=== PATIENT | male | born 1970 | race Caucasian/White ===

== ENCOUNTER 2022-09-20 09:27 | Emergency (ER) | payer SELFPAY | END 2022-09-20 14:09 | disposition left against medical advice (07) | LOC: ER 09:28 | DX: Z00.8 Encounter for other general examination (principal); Z53.21 Procedure and treatment not carried out due to patient leaving prior to being seen by health care provider ==

== ENCOUNTER 2022-09-20 15:16 | Emergency (ER) | payer SELFPAY ==
[~2022-09-20] VITALS: Ht 175.3 cm; Wt 102.7 kg
[2022-09-20 15:52] VITALS: BP 157/98
[2022-09-20 16:31] LABS: BASOPHILS # (AUTO) 0.1 X10'3 (0-0.2); BASOPHILS % (AUTO) 0.6 % (0-1); EOSINOPHILS % (AUTO) 0.4 % (0-6); HEMATOCRIT 50.5 % (42.0-52.0); HEMOGLOBIN 17.6 g/dl (14.0-17.9); LYMPHOCYTES % (AUTO) 19.5 % (21-51); MEAN CORPUSCULAR HEMOGLOBIN 32.6 PG (27.0-31.0); MEAN CORPUSCULAR HGB CONC 34.9 g/dL (33.0-36.5); MEAN CORPUSCULAR VOLUME 93.4 FL (78-98); MEAN PLATELET VOLUME 6.7 FL (7.4-10.4); MONOCYTES # (AUTO) 0.5 X10'3 (0-0.9); MONOCYTES % (AUTO) 4.6 % (2-12); NEUTROPHILS # (AUTO) 7.6 X10'3 (1.8-7.7); NEUTROPHILS % (AUTO) 74.9 % (42-75); PLATELET COUNT 197 X10'3 (140-440); RED CELL DISTRIBUTION WIDTH 14.7 % (11.5-14.5); WHITE BLOOD COUNT 10.2 X10'3 (4.5-11.0)
[2022-09-20 16:50] LABS: ALANINE AMINOTRANSFERASE 67 U/L (12-78); ALBUMIN 4.4 G/DL (3.4-5.0); ALBUMIN/GLOBULIN RATIO 1.2 (1.1-1.5); ALKALINE PHOSPHATASE 76 IU/L (46-116); ANION GAP 15 (8-16); ASPARTATE AMINO TRANSFERASE 60 U/L (10-37); BILIRUBIN,TOTAL 0.5 MG/DL (0.1-1.0); BLOOD UREA NITROGEN 9 MG/DL (7-18); BUN/CREATININE RATIO 8.5 (5.4-32.0); CALCIUM 8.7 MG/DL (8.5-10.1); CHLORIDE 101 MMOL/L (99-107); CREATININE 1.06 MG/DL (0.60-1.10); GLUCOSE 147 MG/DL (70-104); POTASSIUM 3.7 MMOL/L (3.5-5.1); SODIUM 140 MMOL/L (135-145); TOTAL CARBON DIOXIDE 23.9 MMOL/L (24-32); eGFR 73 ML/MIN
== END 2022-09-20 20:13 | disposition left against medical advice (07) ==
LOC: ER 15:17
DX: R45.851 Suicidal ideations (principal); Z53.21 Procedure and treatment not carried out due to patient leaving prior to being seen by health care provider
CPT/HCPCS: 36415; 80053; 80320; 84443; 85025

== ENCOUNTER 2022-11-11 00:29 | Emergency (ER) | payer MEDICAID ==
[~2022-11-11] VITALS: Ht 172.7 cm; Wt 102.3 kg
[2022-11-11] MEDS ORDERED: colchicine 0.6mg tablet PO ONE (06:15)
[2022-11-11 08:19] LABS: BASOPHILS % (AUTO) 0.6 % (0-1); EOSINOPHILS # (AUTO) 0.1 X10'3 (0-0.9); EOSINOPHILS % (AUTO) 1.4 % (0-6); HEMATOCRIT 43.1 % (42.0-52.0); HEMOGLOBIN 14.7 g/dl (14.0-17.9); LYMPHOCYTES % (AUTO) 28.6 % (21-51); MEAN CORPUSCULAR HEMOGLOBIN 31.8 PG (27.0-31.0); MEAN CORPUSCULAR HGB CONC 34.2 g/dL (33.0-36.5); MEAN PLATELET VOLUME 7.2 FL (7.4-10.4); MONOCYTES # (AUTO) 0.4 X10'3 (0-0.9); MONOCYTES % (AUTO) 5.8 % (2-12); NEUTROPHILS # (AUTO) 4.4 X10'3 (1.8-7.7); NEUTROPHILS % (AUTO) 63.6 % (42-75); PLATELET COUNT 208 X10'3 (140-440); RED BLOOD COUNT 4.63 X10'6 (4.70-6.10); RED CELL DISTRIBUTION WIDTH 12.7 % (11.5-14.5); WHITE BLOOD COUNT 6.9 X10'3 (4.5-11.0)
[2022-11-11 08:52] LABS: ANION GAP 8 (8-16); BLOOD UREA NITROGEN 13 MG/DL (7-18); BUN/CREATININE RATIO 14.8 (5.4-32.0); CALCIUM 8.2 MG/DL (8.5-10.1); CHLORIDE 104 MMOL/L (99-107); CREATININE 0.88 MG/DL (0.60-1.10); GLUCOSE 116 MG/DL (70-104); POTASSIUM 3.9 MMOL/L (3.5-5.1); SODIUM 136 MMOL/L (135-145); TOTAL CARBON DIOXIDE 24.2 MMOL/L (24-32); eGFR > 90 ML/MIN
[2022-11-11 08:53] LABS: ALANINE AMINOTRANSFERASE 47 U/L (12-78); ALBUMIN 3.6 G/DL (3.4-5.0); ALBUMIN/GLOBULIN RATIO 1.1 (1.1-1.5); ALKALINE PHOSPHATASE 63 IU/L (46-116); ASPARTATE AMINO TRANSFERASE 37 U/L (10-37); BILIRUBIN,TOTAL 0.3 MG/DL (0.1-1.0); TOTAL PROTEIN 6.9 G/DL (6.4-8.2)
[2022-11-11] MEDS ORDERED: COLC0.6T72 PO (09:17)
[2022-11-11] MEDS ORDERED: ALLO100T PO (09:17)
[2022-11-11 09:26] VITALS: BP 121/79
== END 2022-11-11 09:28 | disposition home or self-care (01) ==
LOC: ER 00:30
DX: M79.671 Pain in right foot (principal); M79.674 Pain in right toe(s); F17.200 Nicotine dependence, unspecified, uncomplicated; Z88.1 Allergy status to other antibiotic agents; Z79.899 Other long term (current) drug therapy
CPT/HCPCS: 36415; 73630; 80053; 84550; 85025; 99285

== ENCOUNTER 2022-11-13 16:25 | Emergency (ER) | payer MEDICAID ==
[~2022-11-13] VITALS: Ht 172.7 cm; Wt 102.3 kg
[~2022-11-13 16:25] MED LIST: ALLO100T PO; COLC0.6T72 PO
[2022-11-13 16:40] VITALS: BP 163/110
== END 2022-11-13 21:45 | disposition home or self-care (01) ==
LOC: ER 16:25
DX: F10.920 Alcohol use, unspecified with intoxication, uncomplicated (principal); Z88.0 Allergy status to penicillin; Z79.899 Other long term (current) drug therapy; Y90.9 Presence of alcohol in blood, level not specified
CPT/HCPCS: 99284

== ENCOUNTER 2022-11-16 14:20 | Emergency (ER) | payer MEDICAID ==
[~2022-11-16] VITALS: Ht 172.7 cm; Wt 99.9 kg
[2022-11-16 22:14] LABS: BASOPHILS % (AUTO) 0.4 % (0-1); EOSINOPHILS % (AUTO) 0.5 % (0-6); HEMATOCRIT 43.9 % (42.0-52.0); HEMOGLOBIN 14.7 g/dl (14.0-17.9); LYMPHOCYTES # (AUTO) 1.3 X10'3 (1.1-4.8); LYMPHOCYTES % (AUTO) 15.3 % (21-51); MEAN CORPUSCULAR HEMOGLOBIN 31.4 PG (27.0-31.0); MEAN CORPUSCULAR HGB CONC 33.6 g/dL (33.0-36.5); MEAN CORPUSCULAR VOLUME 93.4 FL (78-98); MEAN PLATELET VOLUME 6.8 FL (7.4-10.4); MONOCYTES # (AUTO) 0.7 X10'3 (0-0.9); MONOCYTES % (AUTO) 9.1 % (2-12); NEUTROPHILS # (AUTO) 6.1 X10'3 (1.8-7.7); NEUTROPHILS % (AUTO) 74.7 % (42-75); PLATELET COUNT 211 X10'3 (140-440); RED CELL DISTRIBUTION WIDTH 13.2 % (11.5-14.5); WHITE BLOOD COUNT 8.2 X10'3 (4.5-11.0)
[2022-11-16] MEDS ORDERED: ondansetron/PF 4mg/2ml inj IV ONE (22:15)
[2022-11-16] MEDS ORDERED: normal saline 1000ML IV soln IVB ONE (22:15)
[2022-11-16 22:19] LABS: ALANINE AMINOTRANSFERASE 63 U/L (12-78); ALBUMIN/GLOBULIN RATIO 1.2 (1.1-1.5); ALKALINE PHOSPHATASE 67 IU/L (46-116); ANION GAP 11 (8-16); ASPARTATE AMINO TRANSFERASE 44 U/L (10-37); BILIRUBIN,TOTAL 0.2 MG/DL (0.1-1.0); BLOOD UREA NITROGEN 14 MG/DL (7-18); BUN/CREATININE RATIO 13.2 (5.4-32.0); CALCIUM 8.3 MG/DL (8.5-10.1); CHLORIDE 103 MMOL/L (99-107); CREATININE 1.06 MG/DL (0.60-1.10); GLUCOSE 203 MG/DL (70-104); POTASSIUM 3.4 MMOL/L (3.5-5.1); SODIUM 139 MMOL/L (135-145); TOTAL CARBON DIOXIDE 24.7 MMOL/L (24-32); TOTAL PROTEIN 7.3 G/DL (6.4-8.2); eGFR 73 ML/MIN
[2022-11-16 22:38] LABS: LIPASE 137 U/L (73-393)
[2022-11-17 00:25] LABS: CLARITY,URINE CLEAR (Clear); COLOR,URINE YELLOW (Yellow); GLUCOSE, URINE 250 mg/dl (Neg); KETONES,URINE NEGATIVE (Neg); LEUKOCYTE ESTERASE ,URINE NEGATIVE (Neg); NITRITES, URINE NEGATIVE (Neg); OCCULT BLOOD,URINE NEGATIVE (Neg); PROTEIN,URINE NEGATIVE (Neg); UROBILINOGEN,URINE 0.2 E.U/dL (0.2-1.0)
[2022-11-17 00:29] LABS: UA COLLECTION TYPE URINAL
[2022-11-17] MEDS ORDERED: chlordiazePOXIDE 25mg capsule PO ONE ×2 (00:30→02:50)
[2022-11-17] MEDS ORDERED: LORazepam 2 mg/ml vial IV ONE (01:45)
--- NOTE | 2022-11-17 02:40 | NUR ---
PT ABLE TO EAT HALF OF A TURKEY SANDWICH WITHOUT ISSUE. DR MULLEN NOTIFIED OF SUCCESSFUL SWALLOW STUDY.
[2022-11-17] MEDS ORDERED: potassium Cl 20 mEq SR tablet PO STA (02:41)
[2022-11-17] MEDS ORDERED: CHLO25CA10 PO (02:53)
[2022-11-17 03:32] VITALS: BP 133/84
== END 2022-11-17 03:36 | disposition home or self-care (01) ==
LOC: ER 14:21
DX: F10.129 Alcohol abuse with intoxication, unspecified (principal); Y90.9 Presence of alcohol in blood, level not specified
CPT/HCPCS: 36415; 80053; 81003; 83690; 83735; 84484; 85025; 93005; 96361; 96374; 96375; 99284; J2060; J2405; J7030

== ENCOUNTER 2023-05-27 09:58 | Emergency (ER) | payer MEDICAID ==
[~2023-05-27] VITALS: Ht 172.7 cm; Wt 100.0 kg
[~2023-05-27 09:58] MED LIST changes: -ALLO100T PO; +ATOR40TA PO; -COLC0.6T72 PO; +METF-900 PO
--- NOTE | 2023-05-27 10:51 | NUR ---
tech inventoried pt belongings, valuables sent to safe, belongings bag placed in room 27.
[2023-05-27 10:55] LABS: BASOPHILS % (AUTO) 0.5 % (0-1); EOSINOPHILS # (AUTO) 0.1 X10'3 (0-0.9); EOSINOPHILS % (AUTO) 0.8 % (0-6); HEMATOCRIT 46.5 % (42.0-52.0); HEMOGLOBIN 15.7 g/dl (14.0-17.9); LYMPHOCYTES # (AUTO) 2.2 X10'3 (1.1-4.8); MEAN CORPUSCULAR HEMOGLOBIN 31.2 PG (27.0-31.0); MEAN CORPUSCULAR HGB CONC 33.7 g/dL (33.0-36.5); MEAN CORPUSCULAR VOLUME 92.6 FL (78-98); MEAN PLATELET VOLUME 7.2 FL (7.4-10.4); MONOCYTES # (AUTO) 0.7 X10'3 (0-0.9); MONOCYTES % (AUTO) 7.9 % (2-12); NEUTROPHILS # (AUTO) 5.9 X10'3 (1.8-7.7); NEUTROPHILS % (AUTO) 65.8 % (42-75); PLATELET COUNT 211 X10'3 (140-440); RED BLOOD COUNT 5.02 X10'6 (4.70-6.10); RED CELL DISTRIBUTION WIDTH 14.5 % (11.5-14.5); WHITE BLOOD COUNT 8.9 X10'3 (4.5-11.0)
[2023-05-27 11:09] LABS: URINE AMPHETAMINE SCREEN NEGATIVE (Neg); URINE BARBITUATE SCREEN NEGATIVE (Neg); URINE BENZODIAZEPINES SCREEN NEGATIVE (Neg); URINE CANNABINOID SCREEN NEGATIVE (Neg); URINE COCAINE SCREEN NEGATIVE (Neg); URINE METHADONE SCREEN NEGATIVE (Neg); URINE OPIATE SCREEN NEGATIVE (Neg); URINE PHENCYCLIDINE SCREEN NEGATIVE (Neg)
[2023-05-27 11:09] LABS: ALANINE AMINOTRANSFERASE 103 U/L (12-78); ALBUMIN 4.4 G/DL (3.4-5.0); ALBUMIN/GLOBULIN RATIO 1.3 (1.1-1.5); ALKALINE PHOSPHATASE 82 IU/L (46-116); ANION GAP 10 (8-16); ASPARTATE AMINO TRANSFERASE 42 U/L (10-37); BILIRUBIN,TOTAL 0.2 MG/DL (0.1-1.0); BLOOD UREA NITROGEN 12 MG/DL (7-18); CALCIUM 8.7 MG/DL (8.5-10.1); CHLORIDE 106 MMOL/L (99-107); CREATININE 1.34 MG/DL (0.60-1.10); GLUCOSE 126 MG/DL (70-104); SODIUM 142 MMOL/L (135-145); TOTAL CARBON DIOXIDE 26.1 MMOL/L (24-32); TOTAL PROTEIN 7.7 G/DL (6.4-8.2); eGFR 56 ML/MIN
[2023-05-27 11:19] LABS: ETHANOL 0.291 GM/DL (0.0-0.010)
[2023-05-27 11:30] LABS: CLARITY,URINE CLEAR (Clear); COLOR,URINE YELLOW (Yellow); GLUCOSE, URINE NEGATIVE (Neg); KETONES,URINE NEGATIVE (Neg); LEUKOCYTE ESTERASE ,URINE NEGATIVE (Neg); NITRITES, URINE NEGATIVE (Neg); OCCULT BLOOD,URINE NEGATIVE (Neg); PROTEIN,URINE NEGATIVE (Neg); UROBILINOGEN,URINE 0.2 E.U/dL (0.2-1.0)
[2023-05-27 11:32] LABS: UA COLLECTION TYPE VOIDED
--- NOTE | 2023-05-27 13:57 | NUR ---
Patient resting in bed quietly. No complaints.
--- NOTE | 2023-05-27 15:45 | NUR ---
Patient sleeping quietly in bed. Alert and oriented to self and situation.
--- NOTE | 2023-05-27 18:41 | NUR ---
The ambulated to bed 24 from the main ER.
--- NOTE | 2023-05-27 19:18 | NUR ---
The patient is awake and pleasant. He currently denies A/V. He stated that he does feel suicidal and added, "Better off not being here" He stated that he feels horrible about being served with divorse papers. No visible tremors.
--- NOTE | 2023-05-27 20:11 | NUR ---
The patient appears to be sleeping
--- NOTE | 2023-05-27 20:39 | NUR ---
The patient is resting on his bed.
--- NOTE | 2023-05-27 21:42 | NUR ---
The patient appears to be sleeping
--- NOTE | 2023-05-27 23:02 | NUR ---
The patient appears to be sleeping
--- NOTE | 2023-05-28 01:09 | NUR ---
The patient appears to be sleeping
--- NOTE | 2023-05-28 03:02 | NUR ---
The patient appears to be sleeping
--- NOTE | 2023-05-28 05:08 | NUR ---
The patient appears to be sleeping
[2023-05-28] MEDS ORDERED: METFORMIN HCL PO SCH (08:00)
[2023-05-28] MEDS ORDERED: atorvastatin 20mg tablet PO SCH (08:00)
--- NOTE | 2023-05-28 09:00 | NUR ---
Pt. awoke and ate breakfast and took medication. RN informed by [facility] socal worker that pt. will be released back to [facility]. Pt. reports passive SI. Denies plan. Denies HI, A/V hallucinations. Pt. is A&Ox4, pt. reports no withdrawal symptoms. Pt. in no apparent distress. No tremors, diaphoresis observed. Pt. reports he will take a bus back to [facility]. Pt. escorted out of hospital by security.
[2023-05-28 09:56] VITALS: BP 131/78
[2023-05-29] MEDS ORDERED: IBUP-1985 PO (12:25)
[2023-05-29] MEDS ORDERED: LISI10TA27 PO ×2 (12:25→14:34)
[2023-05-29] MEDS ORDERED: VALA500T41 PO (12:28)
[2023-05-29] MEDS ORDERED: SIMV-42 PO (14:34)
[2023-05-29] MEDS ORDERED: METF-436 PO (14:34)
[2023-05-29] MEDS ORDERED: IBUP-1984 PO (14:34)
== END 2023-05-28 09:45 | disposition still patient (30) ==
LOC: ER 09:58
DX: R45.851 Suicidal ideations (principal); Z20.822 Contact with and (suspected) exposure to COVID-19; M10.9 Gout, unspecified; F12.90 Cannabis use, unspecified, uncomplicated; Z72.89 Other problems related to lifestyle; Z59.00 Homelessness unspecified; Z88.1 Allergy status to other antibiotic agents; Z79.899 Other long term (current) drug therapy
CPT/HCPCS: 36415; 80053; 80305; 80320; 81003; 82948; 84443; 85025; 87811; 99285; J7030

== ENCOUNTER 2023-05-29 11:50 | Emergency (ER) | payer MEDICAID ==
[~2023-05-29] VITALS: Ht 185.4 cm; Wt 100.5 kg
[2023-05-29] MEDS ORDERED: ondansetron/PF 4mg/2ml inj IV ONE (11:55)
[2023-05-29] MEDS ORDERED: famotidine/PF 10 mg/ml inj IV ONE (11:55)
[2023-05-29] MEDS ORDERED: thiamine 100mg/ml 2ml inj. IV ONE (11:55)
[2023-05-29] MEDS ORDERED: normal saline 1000ML IV soln IV ONE (11:55)
[2023-05-29] MEDS ORDERED: folic acid 1mg/0.2ml inj IV ONE (11:55)
[2023-05-29] MEDS ORDERED: LISI10TA27 PO ×2 (12:25→14:34)
[2023-05-29] MEDS ORDERED: IBUP-1985 PO (12:25)
[2023-05-29] MEDS ORDERED: VALA500T41 PO (12:28)
[2023-05-29 12:43] LABS: BASOPHILS % (AUTO) 0.5 % (0-1); EOSINOPHILS % (AUTO) 0.6 % (0-6); HEMATOCRIT 44.5 % (42.0-52.0); LYMPHOCYTES # (AUTO) 1.8 X10'3 (1.1-4.8); LYMPHOCYTES % (AUTO) 21.6 % (21-51); MEAN CORPUSCULAR HEMOGLOBIN 30.9 PG (27.0-31.0); MEAN CORPUSCULAR HGB CONC 33.7 g/dL (33.0-36.5); MEAN CORPUSCULAR VOLUME 91.9 FL (78-98); MONOCYTES # (AUTO) 0.7 X10'3 (0-0.9); MONOCYTES % (AUTO) 8.7 % (2-12); NEUTROPHILS # (AUTO) 5.7 X10'3 (1.8-7.7); NEUTROPHILS % (AUTO) 68.6 % (42-75); PLATELET COUNT 232 X10'3 (140-440); RED BLOOD COUNT 4.84 X10'6 (4.70-6.10); RED CELL DISTRIBUTION WIDTH 14.8 % (11.5-14.5); WHITE BLOOD COUNT 8.3 X10'3 (4.5-11.0)
[2023-05-29 12:59] LABS: ALANINE AMINOTRANSFERASE 75 U/L (12-78); ALBUMIN 3.9 G/DL (3.4-5.0); ALBUMIN/GLOBULIN RATIO 1.2 (1.1-1.5); ALKALINE PHOSPHATASE 70 IU/L (46-116); ANION GAP 12 (8-16); BILIRUBIN,TOTAL 0.3 MG/DL (0.1-1.0); BLOOD UREA NITROGEN 10 MG/DL (7-18); BUN/CREATININE RATIO 10.5 (10.0-20.0); CALCIUM 8.3 MG/DL (8.5-10.1); CHLORIDE 103 MMOL/L (99-107); CREATININE 0.95 MG/DL (0.60-1.10); GLUCOSE 115 MG/DL (70-104); SODIUM 139 MMOL/L (135-145); TOTAL CARBON DIOXIDE 23.7 MMOL/L (24-32); TOTAL PROTEIN 7.1 G/DL (6.4-8.2); eGFR 83 ML/MIN
[2023-05-29 13:08] LABS: ETHANOL 0.278 GM/DL (0.0-0.010)
[2023-05-29 13:21] LABS: ASPARTATE AMINO TRANSFERASE 43 U/L (10-37); POTASSIUM 4.2 MMOL/L (3.5-5.1)
--- NOTE | 2023-05-29 13:21 | NUR ---
PT CHANGED INTO GREEN SCRUBS AND GIVEN MEAL TRAY. NO DISTRESS NOTED AT THIS TIME.
[2023-05-29 13:30] LABS: CLARITY,URINE CLEAR (Clear); COLOR,URINE YELLOW (Yellow); GLUCOSE, URINE NEGATIVE (Neg); KETONES,URINE NEGATIVE (Neg); LEUKOCYTE ESTERASE ,URINE NEGATIVE (Neg); NITRITES, URINE NEGATIVE (Neg); OCCULT BLOOD,URINE NEGATIVE (Neg); PH,URINE 5.5 (4.8-8.0); PROTEIN,URINE NEGATIVE (Neg); UROBILINOGEN,URINE 0.2 E.U/dL (0.2-1.0)
[2023-05-29 13:32] LABS: UA COLLECTION TYPE CLN CATCH MIDSTREAM
--- NOTE | 2023-05-29 13:32 | NUR ---
PT ATE LUNCH AND IS NOW SLEEPING
[2023-05-29 13:39] LABS: URINE AMPHETAMINE SCREEN NEGATIVE (Neg); URINE BARBITUATE SCREEN NEGATIVE (Neg); URINE BENZODIAZEPINES SCREEN NEGATIVE (Neg); URINE CANNABINOID SCREEN NEGATIVE (Neg); URINE COCAINE SCREEN NEGATIVE (Neg); URINE METHADONE SCREEN NEGATIVE (Neg); URINE OPIATE SCREEN NEGATIVE (Neg); URINE PHENCYCLIDINE SCREEN NEGATIVE (Neg)
--- NOTE | 2023-05-29 13:53 | NUR ---
PACKET FAXED TO [facility]
--- NOTE | 2023-05-29 14:05 | NUR ---
Pt ambulatory from main ER to ER overflow accompanied by tech. He was receptive to 1:1 assessment. Pt continues to endorse SI, stating that he would "go back out and do the same shit again". Pt reporting recent stressors in his life with his dad close to passing and his wanting a divorce. Pt stating that he wants help. He denies HI, AH or VH. Does not appear to be responding to internal stimuli. Pt reports that "drinking has always been prevalent in his life and has destroyed everything". He has been to multiple alcohol treatment programs this past year and was most recently in the [facility] program in [place]. Patient has stopped taking his medication and has been drinking much more recently.
[2023-05-29] MEDS ORDERED: IBUP-1984 PO (14:34)
[2023-05-29] MEDS ORDERED: METF-436 PO (14:34)
[2023-05-29] MEDS ORDERED: SIMV-42 PO (14:34)
--- NOTE | 2023-05-29 14:59 | NUR ---
Pt observed sleeping in his room at this time with no s/s of distress. Respirations even, unlabored. Will cont to monitor.
[2023-05-29] MEDS ORDERED: valacyclovir 500mg tablet PO PRN (15:15)
[2023-05-29] MEDS ORDERED: ibuprofen 200mg tablet PO PRN (15:15)
--- NOTE | 2023-05-29 16:00 | NUR ---
Patient evaluated by [facility] worker.
--- NOTE | 2023-05-29 16:15 | NUR ---
Patient ambulated to the restroom and back to his room with a steady gait. He is observed sleeping in bed on his right side at this time. Equal rise and fall of chest. Will continue to monitor.
[2023-05-29] MEDS: metFORMIN 500mg tablet PO SCH (18:04)
--- NOTE | 2023-05-29 18:07 | NUR ---
Patient awoke for dinner and is noted sitting in his room eating at this time. No s/s of distress or complaints at this time. Will continue to monitor.
--- NOTE | 2023-05-29 20:38 | NUR ---
Pt sleeping at this time no HS meds so allowed to sleep.
--- NOTE | 2023-05-29 22:47 | NUR ---
Sleeping resp even and unlabored.
--- NOTE | 2023-05-30 01:07 | NUR ---
Pt continues to sleep resp even and unlabored.
--- NOTE | 2023-05-30 03:02 | NUR ---
Sleeping resp even and unlabored.
--- NOTE | 2023-05-30 05:06 | NUR ---
Ambulated independantly to BR and returned to bed sleeping at this time.
--- NOTE | 2023-05-30 06:43 | NUR ---
Patient sleeping on his right side. No distress observed. Continue to monitor.
[2023-05-30] MEDS: atorvastatin 20mg tablet PO SCH (08:19)
[2023-05-30] MEDS: lisinopril 10 MG tablet PO SCH (08:20)
--- NOTE | 2023-05-30 08:20 | NUR ---
Patient's breakfast at bedside. Patient states he is not hungry. No distress observed. Continue to monitor.
--- NOTE | 2023-05-30 10:14 | NUR ---
Patient has been accepted at [facility] pending a bed
--- NOTE | 2023-05-30 11:28 | NUR ---
Met with patient in regards to alcohol use and to see if patient was interested in resources for treatment options. Patient is currently in [facility] program. I talked to patient about starting Naltrexone. He is interested in that. Patient has a card for [facility] to have them start Naltrexone.
--- NOTE | 2023-05-30 12:07 | NUR ---
Patient eating lunch. No distress observed. Continue to monitor.
--- NOTE | 2023-05-30 14:04 | NUR ---
Patient sleeping. No distress observed. Continue to monitor.
--- NOTE | 2023-05-30 16:01 | NUR ---
[facility] has no available beds today or tomorrow. Patient wa accepted at [facility] at 1515 by YOSSI Ryan. Patient leaving tonight around 2230ish unless they can't find a pick up driver. Continue to monitor.
[2023-05-30] MEDS: metFORMIN 500mg tablet PO SCH (17:59)
--- NOTE | 2023-05-30 19:06 | NUR ---
The patient is resting on his bed watching TV. He is wanting to be discharged and not have to go to [facility]. He stated that he feels he can manage his life and that he can return to "[facility]" [facility] did speak with him and stated that at this point he would need to be treated and go to [facility]. The patient accepted that information.
--- NOTE | 2023-05-30 19:20 | NUR ---
Per [facility] the patient will not be transferred until tomorrow. The patient was made aware.
--- NOTE | 2023-05-30 19:59 | NUR ---
The patient is resting on his bed watching tv.
--- NOTE | 2023-05-30 21:48 | NUR ---
The patient appears to be sleeping
--- NOTE | 2023-05-30 23:03 | NUR ---
The patient appears to be sleeping
--- NOTE | 2023-05-31 01:04 | NUR ---
The patient appears to be sleeping
--- NOTE | 2023-05-31 02:58 | NUR ---
The patient appears to be sleeping
--- NOTE | 2023-05-31 05:14 | NUR ---
THe patient appears to be sleeping
[2023-05-31 06:25] VITALS: BP_DIAS 88
--- NOTE | 2023-05-31 06:35 | NUR ---
Patient sleeping on his right side. No distress observed. Continue to monitor.
--- NOTE | 2023-05-31 08:11 | NUR ---
Patient eating breakfast. No distress observed. Continue to monitor.
[2023-05-31 08:53] VITALS: BP_SYST 134
[2023-05-31] MEDS: atorvastatin 20mg tablet PO SCH (08:53)
[2023-05-31] MEDS: lisinopril 10 MG tablet PO SCH (08:53)
== END 2023-05-31 09:35 ==
LOC: ER 11:51
DX: F32.A Depression, unspecified (principal); Z20.822 Contact with and (suspected) exposure to COVID-19; R45.851 Suicidal ideations; F10.120 Alcohol abuse with intoxication, uncomplicated; M10.9 Gout, unspecified; E11.9 Type 2 diabetes mellitus without complications; I10 Essential (primary) hypertension; Z59.00 Homelessness unspecified; Z88.1 Allergy status to other antibiotic agents; Z79.899 Other long term (current) drug therapy; Y90.8 Blood alcohol level of 240 mg/100 ml or more
CPT/HCPCS: 36415; 80053; 80305; 80320; 81003; 84443; 85025; 87811; 99285; J2405; J3411; J3490; J7030

== ENCOUNTER 2023-06-02 16:57 | Inpatient (IN) | payer MEDICAID ==
[~2023-06-02] VITALS: Ht 172.7 cm; Wt 100.0 kg
[~2023-06-02 16:57] MED LIST changes: +IBUP-1985 PO; +LISI10TA27 PO; +METF-436 PO; -METF-900 PO; +VALA500T41 PO
[2023-06-02] MEDS ORDERED: normal saline 1000ML IV soln IV ONE (17:25)
[2023-06-02 18:03] LABS: BASOPHILS % (AUTO) 0.5 % (0-1); EOSINOPHILS % (AUTO) 0.2 % (0-6); HEMATOCRIT 38.5 % (42.0-52.0); HEMOGLOBIN 12.6 g/dl (14.0-17.9); LYMPHOCYTES % (AUTO) 20.1 % (21-51); MEAN CORPUSCULAR HEMOGLOBIN 30.3 PG (27.0-31.0); MEAN CORPUSCULAR HGB CONC 32.8 g/dL (33.0-36.5); MEAN CORPUSCULAR VOLUME 92.4 FL (78-98); MONOCYTES # (AUTO) 0.9 X10'3 (0-0.9); MONOCYTES % (AUTO) 9.5 % (2-12); NEUTROPHILS # (AUTO) 6.9 X10'3 (1.8-7.7); NEUTROPHILS % (AUTO) 69.7 % (42-75); PLATELET COUNT 213 X10'3 (140-440); RED BLOOD COUNT 4.16 X10'6 (4.70-6.10); RED CELL DISTRIBUTION WIDTH 14.9 % (11.5-14.5); WHITE BLOOD COUNT 9.9 X10'3 (4.5-11.0)
[2023-06-02 18:22] LABS: ALANINE AMINOTRANSFERASE 43 U/L (12-78); ALBUMIN 3.2 G/DL (3.4-5.0); ALBUMIN/GLOBULIN RATIO 1.4 (1.1-1.5); ALKALINE PHOSPHATASE 54 IU/L (46-116); ANION GAP 16 (8-16); ASPARTATE AMINO TRANSFERASE 24 U/L (10-37); BILIRUBIN,TOTAL 0.3 MG/DL (0.1-1.0); BLOOD UREA NITROGEN 30 MG/DL (7-18); BUN/CREATININE RATIO 7.6 (10.0-20.0); CALCIUM 7.4 MG/DL (8.5-10.1); CHLORIDE 106 MMOL/L (99-107); CREATININE 3.94 MG/DL (0.60-1.10); ETHANOL 0.199 GM/DL (0.0-0.010); GLUCOSE 95 MG/DL (70-104); MAGNESIUM 2.2 MG/DL (1.5-2.4); POTASSIUM 3.5 MMOL/L (3.5-5.1); SODIUM 142 MMOL/L (135-145); TOTAL CARBON DIOXIDE 19.8 MMOL/L (24-32); TOTAL PROTEIN 5.5 G/DL (6.4-8.2); eGFR 16 ML/MIN
[2023-06-02] MEDS ORDERED: normal saline 1000ml 1,000 ML IV ONE (18:50)
[2023-06-02 20:02] LABS: CLARITY,URINE CLEAR (Clear); COLOR,URINE YELLOW (Yellow); GLUCOSE, URINE NEGATIVE (Neg); KETONES,URINE NEGATIVE (Neg); LEUKOCYTE ESTERASE ,URINE NEGATIVE (Neg); NITRITES, URINE NEGATIVE (Neg); OCCULT BLOOD,URINE TRACE-INTACT (Neg); PROTEIN,URINE NEGATIVE (Neg); UROBILINOGEN,URINE 0.2 E.U/dL (0.2-1.0)
[2023-06-02 20:07] LABS: UA COLLECTION TYPE CLN CATCH MIDSTREAM
[2023-06-02 20:09] LABS: BACTERIA,URINE NONE SEEN /HPF (Neg); HYALINE CASTS 0-3 /LPF (NEGATIVE); MUCUS STRANDS FEW /LPF (Neg); RBC,URINE 0-2 /HPF (0-2); SQUAMOUS EPITHELIAL CELL,UR FEW /LPF (FEW); WBC,URINE 0-4 /HPF (0-4)
[2023-06-02] MEDS ORDERED: insulin Lispro (HumaLOG) vial - multi-dose SQ SCH (20:20)
[2023-06-02] MEDS ORDERED: LORazepam 2 mg/ml vial IV PRN ×2 (20:20)
[2023-06-02] MEDS ORDERED: bisacodyl 10mg suppository rectal RC PRN (20:20)
[2023-06-02] MEDS: normal saline 1000ml 1,000 ML IV SCH (20:20)
[2023-06-02] MEDS ORDERED: glucagon, human recombinant 1mg kit SUBCUT PRN (20:20)
[2023-06-02] MEDS ORDERED: acetaminophen 325mg tablet PO PRN (20:20)
[2023-06-02] MEDS ORDERED: ondansetron/PF 4mg/2ml inj IV PRN (20:20)
[2023-06-02] MEDS ORDERED: dextrose 50%-water 50ml dispensing syringe IV PRN ×2 (20:20)
[2023-06-02] MEDS ORDERED: haloperidol lactate 5mg/ml inj IM PRN (20:20)
[2023-06-02] MEDS ORDERED: potassium Cl 20 mEq SR tablet PO PRN ×2 (20:20)
[2023-06-02] MEDS ORDERED: potassium Cl 40MEQ/1/2NS 520ml 520 ML IV PRN (20:20)
[2023-06-02] MEDS ORDERED: DEXTROSE 15 GM of carb/4 tabs (each vial/BOTTLE has 4 tablets) PO PRN ×2 (20:20)
[2023-06-02] MEDS ORDERED: MESSAGE TO PHARMACY PO ONE (20:20)
[2023-06-02] MEDS ORDERED: mag hydrox/Alum hydrox/simeth 30ml oral suspension PO PRN (20:20)
[2023-06-02] MEDS ORDERED: magnesium 4gm in 100ml NS 100 ML IV PRN (20:20)
[2023-06-02 20:23] LABS: URINE AMPHETAMINE SCREEN NEGATIVE (Neg); URINE BARBITUATE SCREEN NEGATIVE (Neg); URINE BENZODIAZEPINES SCREEN NEGATIVE (Neg); URINE CANNABINOID SCREEN NEGATIVE (Neg); URINE COCAINE SCREEN NEGATIVE (Neg); URINE METHADONE SCREEN NEGATIVE (Neg); URINE OPIATE SCREEN NEGATIVE (Neg); URINE PHENCYCLIDINE SCREEN NEGATIVE (Neg)
[2023-06-02] MEDS: insulin glargine (Lantus) pen - multi-dose SQ SCH (21:00)
[2023-06-02 21:33] LABS: ALANINE AMINOTRANSFERASE 44 U/L (12-78); ALBUMIN 3.1 G/DL (3.4-5.0); ALBUMIN/GLOBULIN RATIO 1.2 (1.1-1.5); ALKALINE PHOSPHATASE 54 IU/L (46-116); ANION GAP 14 (8-16); ASPARTATE AMINO TRANSFERASE 27 U/L (10-37); BILIRUBIN,TOTAL 0.2 MG/DL (0.1-1.0); BLOOD UREA NITROGEN 27 MG/DL (7-18); BUN/CREATININE RATIO 8.8 (10.0-20.0); CALCIUM 7.4 MG/DL (8.5-10.1); CHLORIDE 109 MMOL/L (99-107); CREATININE 3.06 MG/DL (0.60-1.10); GLUCOSE 133 MG/DL (70-104); POTASSIUM 3.8 MMOL/L (3.5-5.1); SODIUM 145 MMOL/L (135-145); TOTAL CARBON DIOXIDE 22.5 MMOL/L (24-32); TOTAL PROTEIN 5.7 G/DL (6.4-8.2); eGFR 21 ML/MIN
[2023-06-02 22:00] VITALS: BP 126/71
[2023-06-03] MEDS ORDERED: valacyclovir 500mg tablet PO PRN (00:25)
[2023-06-03 02:26] VITALS: BP 135/72
[2023-06-03] MEDS: normal saline 1000ml 1,000 ML IV SCH ×2 (05:44→15:58)
--- NOTE | 2023-06-03 06:29 | NUR ---
Problems reprioritized. Patient report given, questions answered & plan of care reviewed with POLO RN/ADALBERTO RN.
--- NOTE | 2023-06-03 06:38 | NUR ---
Patient in room PCU 3022. I have received report from PATT BROCK and had the opportunity to ask questions and assume patient care.
[2023-06-03 07:05] LABS: BASOPHILS % (AUTO) 0.3 % (0-1); EOSINOPHILS # (AUTO) 0.1 X10'3 (0-0.9); HEMATOCRIT 41.8 % (42.0-52.0); HEMOGLOBIN 13.9 g/dl (14.0-17.9); LYMPHOCYTES # (AUTO) 1.4 X10'3 (1.1-4.8); LYMPHOCYTES % (AUTO) 18.4 % (21-51); MEAN CORPUSCULAR HEMOGLOBIN 30.6 PG (27.0-31.0); MEAN CORPUSCULAR HGB CONC 33.3 g/dL (33.0-36.5); MONOCYTES # (AUTO) 0.7 X10'3 (0-0.9); MONOCYTES % (AUTO) 9.1 % (2-12); NEUTROPHILS # (AUTO) 5.3 X10'3 (1.8-7.7); NEUTROPHILS % (AUTO) 71.2 % (42-75); PLATELET COUNT 170 X10'3 (140-440); RED BLOOD COUNT 4.54 X10'6 (4.70-6.10); RED CELL DISTRIBUTION WIDTH 14.4 % (11.5-14.5); WHITE BLOOD COUNT 7.4 X10'3 (4.5-11.0)
[2023-06-03 07:11] VITALS: BP 145/89
[2023-06-03 07:21] LABS: ALANINE AMINOTRANSFERASE 43 U/L (12-78); ALBUMIN 3.3 G/DL (3.4-5.0); ALBUMIN/GLOBULIN RATIO 1.2 (1.1-1.5); ALKALINE PHOSPHATASE 55 IU/L (46-116); ANION GAP 11 (8-16); ASPARTATE AMINO TRANSFERASE 31 U/L (10-37); BILIRUBIN,TOTAL 0.6 MG/DL (0.1-1.0); BLOOD UREA NITROGEN 18 MG/DL (7-18); CHLORIDE 108 MMOL/L (99-107); GLUCOSE 96 MG/DL (70-104); LIPASE 58 U/L (73-393); MAGNESIUM 2.2 MG/DL (1.5-2.4); POTASSIUM 4.1 MMOL/L (3.5-5.1); SODIUM 142 MMOL/L (135-145); eGFR 49 ML/MIN
[2023-06-03] MEDS: multivitamins, therapeutics tablet PO SCH (07:37)
[2023-06-03] MEDS: docusate sod 100mg capsule PO SCH ×2 (07:37→19:15)
[2023-06-03] MEDS: lisinopril 10 MG tablet PO SCH (07:37)
[2023-06-03] MEDS: thiamine 100mg tablet PO SCH ×2 (07:38→19:15)
[2023-06-03] MEDS: atorvastatin 20mg tablet PO SCH (07:38)
[2023-06-03] MEDS: K and/or MAG REPLACEMENT MC SCH ×2 (08:00→19:08)
--- NOTE | 2023-06-03 08:48 | NUR ---
DM consult: Per EMR pt with T2DM, well controlled with A1c 6.0%. DM education and CHO controlled diet not warranted at this time. Will continue to follow and make recommendations as appropriate. Addendum: 06/03/23 at [address] Amended: Links added.
--- NOTE | 2023-06-03 11:19 | NUR ---
RAGHAVENDRA GILBERT PER MD ORDERS, PT. TOLERATED WELL, WILL CONT. TO MONITOR OUTPUT
[2023-06-03 11:40] VITALS: BP 158/83
[2023-06-03 15:20] VITALS: BP 142/98
[2023-06-03 18:00] VITALS: BP 135/79
--- NOTE | 2023-06-03 18:32 | NUR ---
Problems reprioritized. Patient report given TO GUANAKO SANTOS, questions answered & plan of care reviewed with .
--- NOTE | 2023-06-03 18:42 | NUR ---
[facility] documentation: I have reviewed all interventions, assessments performed and documented by Franklin BROCK. [facility] Medication Administration: For this medication-pass time frame, all medication were reviewed, dispensed, administered and documented per hospital policy by Franklin BROCK.
[2023-06-03] MEDS ORDERED: enoxaparin 40mg/0.4ml syringe SQ SCH (20:00)
[2023-06-03] MEDS: insulin glargine (Lantus) pen - multi-dose SQ SCH (21:00)
[2023-06-03 22:00] VITALS: BP 139/89
[2023-06-04 01:30] VITALS: BP 155/92
[2023-06-04] MEDS: normal saline 1000ml 1,000 ML IV SCH ×2 (01:39→12:20)
--- NOTE | 2023-06-04 03:37 | NUR ---
PHOTOENGRAVING APPRENTICE documentation: I have reviewed and agree with assessment performed and documented by JORGE Jose
[2023-06-04 04:32] LABS: EOSINOPHILS # (AUTO) 0.1 X10'3 (0-0.9); EOSINOPHILS % (AUTO) 1.8 % (0-6)
[2023-06-04 04:36] LABS: BASOPHILS # (AUTO) 0.1 X10'3 (0-0.2); BASOPHILS % (AUTO) 0.8 % (0-1); HEMATOCRIT 42.1 % (42.0-52.0); HEMOGLOBIN 14.2 g/dl (14.0-17.9); LYMPHOCYTES # (AUTO) 1.4 X10'3 (1.1-4.8); LYMPHOCYTES % (AUTO) 17.5 % (21-51); MEAN CORPUSCULAR HEMOGLOBIN 31.3 PG (27.0-31.0); MEAN CORPUSCULAR HGB CONC 33.8 g/dL (33.0-36.5); MEAN CORPUSCULAR VOLUME 92.7 FL (78-98); MEAN PLATELET VOLUME 8.1 FL (7.4-10.4); MONOCYTES # (AUTO) 0.7 X10'3 (0-0.9); MONOCYTES % (AUTO) 8.8 % (2-12); NEUTROPHILS # (AUTO) 5.7 X10'3 (1.8-7.7); NEUTROPHILS % (AUTO) 71.1 % (42-75); PLATELET COUNT 177 X10'3 (140-440); RED BLOOD COUNT 4.54 X10'6 (4.70-6.10); RED CELL DISTRIBUTION WIDTH 14.6 % (11.5-14.5); WHITE BLOOD COUNT 7.9 X10'3 (4.5-11.0)
[2023-06-04 04:37] LABS: ALANINE AMINOTRANSFERASE 38 U/L (12-78); ALBUMIN 3.1 G/DL (3.4-5.0); ALBUMIN/GLOBULIN RATIO 1.1 (1.1-1.5); ALKALINE PHOSPHATASE 55 IU/L (46-116); ANION GAP 10 (8-16); ASPARTATE AMINO TRANSFERASE 22 U/L (10-37); BILIRUBIN,TOTAL 0.6 MG/DL (0.1-1.0); BLOOD UREA NITROGEN 13 MG/DL (7-18); BUN/CREATININE RATIO 12.4 (10.0-20.0); CALCIUM 8.8 MG/DL (8.5-10.1); CHLORIDE 107 MMOL/L (99-107); CREATININE 1.05 MG/DL (0.60-1.10); GLUCOSE 109 MG/DL (70-104); LIPASE 88 U/L (73-393); MAGNESIUM 2.1 MG/DL (1.5-2.4); POTASSIUM 4.2 MMOL/L (3.5-5.1); SODIUM 142 MMOL/L (135-145); TOTAL CARBON DIOXIDE 24.6 MMOL/L (24-32); TOTAL PROTEIN 5.9 G/DL (6.4-8.2); eGFR 74 ML/MIN
--- NOTE | 2023-06-04 06:23 | NUR ---
Problems reprioritized. Patient report given, questions answered & plan of care reviewed with Markus RN and yeimy RN.
--- NOTE | 2023-06-04 06:30 | NUR ---
Patient in room PCU 3022. I have received report from GUANAKO SANTOS and had the opportunity to ask questions and assume patient care.
--- NOTE | 2023-06-04 06:30 | NUR ---
Patient in room PCU 3022. I have received report from Yaritza SANTOS and had the opportunity to ask questions and assume patient care.
[2023-06-04 07:07] VITALS: BP 138/95
[2023-06-04] MEDS: atorvastatin 20mg tablet PO SCH (07:21)
[2023-06-04] MEDS: docusate sod 100mg capsule PO SCH (07:21)
[2023-06-04] MEDS: multivitamins, therapeutics tablet PO SCH (07:21)
[2023-06-04] MEDS: lisinopril 10 MG tablet PO SCH (07:22)
[2023-06-04] MEDS: thiamine 100mg tablet PO SCH (07:22)
[2023-06-04] MEDS: K and/or MAG REPLACEMENT MC SCH (08:00)
[2023-06-04] MEDS ORDERED: enoxaparin 30mg/0.3ml syringe SUBCUT SCH (08:00)
[2023-06-04 12:24] VITALS: BP 149/95
--- NOTE | 2023-06-04 13:35 | NUR ---
PAGER ID: [phone] MESSAGE: ADALBERTO BROCK, U, [phone], RE: [phone], IS THE DISCHARGE COMPLETE AND READY. PT. IS READY TO DISCHARGE. THANKS
[2023-06-04] MEDS ORDERED: FOLI1TAB27 PO (14:04)
[2023-06-04] MEDS ORDERED: MULT-25 PO (14:04)
[2023-06-04] MEDS ORDERED: AMLO5TAB4 PO (14:04)
[2023-06-04] MEDS ORDERED: thiamine tablet PO (14:04)
--- NOTE | 2023-06-04 14:58 | NUR ---
PT. ALERT AND ORIENTATED X4 UPON DISCHARGE, IV CANNULA WHOLE AND INTACT UPON REMOVAL, PT LEFT WITH ALL BELONGINGS, CELL PHONE AND SHOES. PT. AMBULATED VERY WELL UPON DISCHARGE AND WALKED HOME STATING LIVES 1 BLOCK AWAY. PT. EDUCATED ON DEHYDRATION, ALCOHOL ABUSE, AA MEETING IN THE COMMUNITY, S/S OF DEHYDRATION AND ALCOHOL ABUSE,FOLLOWING UP WITH PRIMARY CARE PROVIDER, AND DIABETES CARE.
[2023-06-07] MEDS ORDERED: folic acid 1mg tablet PO SCH (08:00)
== END 2023-06-04 14:40 | disposition home or self-care (01) | DRG 422 ==
LOC: ER 16:58 → ED HOLD 20:28 → PCU 3S 21:07
PROVIDERS: ADMIT Family Medicine; ATTEND Family Medicine
DX: E86.0 Dehydration (principal); N17.0 Acute kidney failure with tubular necrosis; G92.9 Unspecified toxic encephalopathy; E11.9 Type 2 diabetes mellitus without complications; E78.5 Hyperlipidemia, unspecified; F10.129 Alcohol abuse with intoxication, unspecified; F17.210 Nicotine dependence, cigarettes, uncomplicated; F12.90 Cannabis use, unspecified, uncomplicated; I10 Essential (primary) hypertension; T67.5XXA Heat exhaustion, unspecified, initial encounter; F32.A Depression, unspecified; M10.9 Gout, unspecified; X30.XXXA Exposure to excessive natural heat, initial encounter; Z79.84 Long term (current) use of oral hypoglycemic drugs; Z80.1 Family history of malignant neoplasm of trachea, bronchus and lung; Z80.43 Family history of malignant neoplasm of testis; Z80.51 Family history of malignant neoplasm of kidney; Z88.1 Allergy status to other antibiotic agents; Z59.00 Homelessness unspecified; Z79.899 Other long term (current) drug therapy; Z71.6 Tobacco abuse counseling; Y93.89 Activity, other specified; Y92.89 Other specified places as the place of occurrence of the external cause; Y99.8 Other external cause status
CPT/HCPCS: 36415; 71045; 80053; 80305; 80320; 81001; 82948; 83036; 83605; 83690; 83735; 84145; 85025; 85610; 87040; 87081; 99285; A4314; G0378; J1650; J1815; J7030

== ENCOUNTER 2023-06-05 22:26 | Emergency (ER) | payer MEDICAID ==
[~2023-06-05] VITALS: Ht 177.8 cm; Wt 88.6 kg
[~2023-06-05 22:26] MED LIST changes: +AMLO5TAB4 PO; +FOLI1TAB27 PO; +MULT-25 PO; +thiamine tablet PO
[2023-06-06 00:39] VITALS: BP 123/85
== END 2023-06-06 00:42 | disposition home or self-care (01) ==
LOC: ER 22:26
DX: F10.10 Alcohol abuse, uncomplicated (principal); R53.83 Other fatigue; R42 Dizziness and giddiness; E11.9 Type 2 diabetes mellitus without complications; F17.200 Nicotine dependence, unspecified, uncomplicated; F12.90 Cannabis use, unspecified, uncomplicated; Z88.1 Allergy status to other antibiotic agents; Z79.899 Other long term (current) drug therapy; Z79.2 Long term (current) use of antibiotics; Z59.819 Housing instability, housed unspecified; Y90.9 Presence of alcohol in blood, level not specified
CPT/HCPCS: 99283

== ENCOUNTER 2023-06-17 12:35 | Emergency (ER) | payer MEDICAID ==
[~2023-06-17] VITALS: Ht 172.7 cm; Wt 101.4 kg
[2023-06-17 13:22] VITALS: BP_SYST 99; PULSE 103; RESP 16; TEMP 98.2; O2SAT 96
== END 2023-06-17 15:02 | disposition home or self-care (01) ==
LOC: ER 12:36
DX: F10.20 Alcohol dependence, uncomplicated (principal); E11.9 Type 2 diabetes mellitus without complications; M10.9 Gout, unspecified; F17.200 Nicotine dependence, unspecified, uncomplicated; F12.90 Cannabis use, unspecified, uncomplicated; Z59.00 Homelessness unspecified; Z88.1 Allergy status to other antibiotic agents; Z79.2 Long term (current) use of antibiotics; Z79.899 Other long term (current) drug therapy; Y90.9 Presence of alcohol in blood, level not specified
CPT/HCPCS: 82948; 99281; 99282